=== PATIENT | female | born 1955 | race Caucasian/White ===

== ENCOUNTER 2017-05-06 17:16 | Emergency (ER) | payer MEDICAID ==
[~2017-05-06] VITALS: Ht 162.6 cm; Wt 76.8 kg
[2017-05-06 18:45] VITALS: BP 126/73
== END 2017-05-06 18:45 | disposition home or self-care (01) ==
LOC: ED 17:16
DX: S93.602A Unspecified sprain of left foot, initial encounter (principal); E11.9 Type 2 diabetes mellitus without complications; E78.00 Pure hypercholesterolemia, unspecified; X58.XXXA Exposure to other specified factors, initial encounter; Y93.89 Activity, other specified; Y92.89 Other specified places as the place of occurrence of the external cause; Y99.8 Other external cause status
CPT/HCPCS: Q0092